=== PATIENT | male | born 1995 | race Caucasian/White ===

== ENCOUNTER 2020-04-20 06:00 | Day surgery (SDC) | payer OTHER ==
[2020-04-20] MEDS ORDERED: PERCOCET 5-3251 EACH PO (09:08)
[2020-04-20] MEDS ORDERED: BACTRIM DS TAB1 EACH PO (09:08)
== END 2020-04-20 14:00 | disposition home or self-care (01) ==
LOC: CIR.AMB 06:00
PROVIDERS: ATTEND Surgery
DX: L05.01 Pilonidal cyst with abscess (principal); Z20.828 Contact with and (suspected) exposure to other viral communicable diseases